=== PATIENT | female | born 1965 | race Caucasian/White ===

== ENCOUNTER 2021-06-29 07:17 | Emergency (ER) | payer MEDICARE, OTHER ==
[~2021-06-29] VITALS: Ht 160 cm; Wt 107.5 kg
--- OUTSIDE RECORDS SUMMARY | 2021-06-29 07:20 | XMS ---
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 Guidelines Source: [facility] [place] Guidelines Date: 02/27/2020 Care Coordination: Member is currently enrolled in Mental Health Services through [facility]. If services are needed through [facility] please call: Jaida [phone] Radha/Jey Alas\\[facility]; [phone] Crisis [phone] E.D. VISIT COUNT (12 MO.) 1 [facility] TOTAL 1 NOTE: Visits indicate total known visits. ED/UCC VISIT TRACKING (12 MO.) 06/29/2021 07:17 [facility] [place] TYPE: Emergency COMPLAINT: - ANIMAL BITE INPATIENT VISIT TRACKING (12 MO.) No inpatient visits to display in this time frame [email or web address]
[2021-06-29] MEDS ORDERED: ADVAIR 500-501 EACH INH (07:22)
[2021-06-29] MEDS ORDERED: LAMOTRIGINE25 MG PO (07:22)
[2021-06-29] MEDS ORDERED: HYDROXYZINE PAM50 MG PO (07:23)
[2021-06-29] MEDS ORDERED: VENTOLIN HFA18 GM INH (07:23)
[2021-06-29] MEDS ORDERED: AUGMENTIN 875-1 EACH PO (07:43)
== END 2021-06-29 08:08 | disposition home or self-care (01) ==
LOC: ED 07:17
DX: S61.451A Open bite of right hand, initial encounter (principal); L03.113 Cellulitis of right upper limb; W55.01XA Bitten by cat, initial encounter; J44.9 Chronic obstructive pulmonary disease, unspecified; F17.200 Nicotine dependence, unspecified, uncomplicated; Z23 Encounter for immunization; Z88.5 Allergy status to narcotic agent; Z88.2 Allergy status to sulfonamides; Z79.899 Other long term (current) drug therapy
CPT/HCPCS: 90471; 90715; 99283-25

== ENCOUNTER 2022-02-06 23:06 | Emergency (ER) | payer MEDICARE, OTHER ==
[~2022-02-06] VITALS: Ht 160 cm; Wt 107.5 kg
[~2022-02-06 23:06] MED LIST: ADVAIR 500-501 EACH INH; AUGMENTIN 875-1 EACH PO; HYDROXYZINE PAM50 MG PO; LAMOTRIGINE25 MG PO; VENTOLIN HFA18 GM INH
--- OUTSIDE RECORDS SUMMARY | 2022-02-06 23:09 | XMS ---
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 If patient is seen in the ED during business hours. Please contact CHWs at [facility]. Care Recommendation: If this patient has had 5 or more Emergency Department visits in the last 12 months.\T\nbsp; Patient will require education on the scope and purpose of the ED as an acute care provider not a Primary Care Provider and should not be utilized for chronic conditions.\T\nbsp; These are guidelines and the provider should exercise clinical judgment when providing care. E.D. VISIT COUNT (12 MO.) 2 [facility] TOTAL 2 NOTE: Visits indicate total known visits. ED/UCC VISIT TRACKING (12 MO.) 02/06/2022 23:07 [facility] [place] TYPE: Emergency COMPLAINT: - HEAD PAIN 06/29/2021 07:17 [facility] [place] TYPE: Emergency COMPLAINT: - ANIMAL BITE DIAGNOSES: - Chronic obstructive pulmonary disease, unspecified - Allergy status to narcotic agent - Bitten by cat, initial encounter - Nicotine dependence, unspecified, uncomplicated - Open bite of right hand, initial encounter - Encounter for immunization - Allergy status to sulfonamides - Cellulitis of right upper limb - Other [facility] (current) drug therapy INPATIENT VISIT TRACKING (12 MO.) No inpatient visits to display in this time frame [email or web address]
[2022-02-06] MEDS ORDERED: LISINOPRIL10 MG PO (23:29)
[2022-02-06] MEDS ORDERED: ATORVASTATIN CA20 MG PO (23:29)
[2022-02-07] MEDS ORDERED: ZYPREXA5 MG PO (00:17)
[2022-02-08] MEDS ORDERED: CEPHALEXIN500 M1 PO (19:21)
== END 2022-02-07 00:30 | disposition home or self-care (01) ==
LOC: ED 23:06
DX: F22 Delusional disorders (principal); J44.9 Chronic obstructive pulmonary disease, unspecified; F41.9 Anxiety disorder, unspecified; F17.200 Nicotine dependence, unspecified, uncomplicated; Z88.2 Allergy status to sulfonamides; Z88.5 Allergy status to narcotic agent; Z79.899 Other long term (current) drug therapy; Z79.51 Long term (current) use of inhaled steroids
CPT/HCPCS: 96372; 99284; A9270; J1885

== ENCOUNTER 2022-02-07 20:12 | Emergency (ER) | payer MEDICARE, OTHER ==
[~2022-02-07] VITALS: Ht 160 cm; Wt 107.5 kg
[~2022-02-07 20:12] MED LIST changes: +ATORVASTATIN CA20 MG PO; +LISINOPRIL10 MG PO; +ZYPREXA5 MG PO
--- OUTSIDE RECORDS SUMMARY | 2022-02-07 20:14 | XMS ---
PreManage Notification: TUNDE ADDISON Security Arborist Representative Events No recent Security Events currently on file CRITERIA MET - [facility] - 2 Visits in 30 Days - PDMP CARE PROVIDERS KAVITA MERCHANT [facility] 06/30/2021-Current PHONE: [phone] Care Guidelines exist for the following facilities: [facility] ( 02/27/2020 ) Care History Medical/Surgical 06/30/2021 [facility] - Patient is currently established with [facility]. If patient is seen in the ED during business hours. Please contact CHWs at [facility]. Care Recommendation: If this patient has [...] providing care. E.D. VISIT COUNT (12 MO.) 3 [facility] TOTAL 3 NOTE: Visits indicate total known visits. ED/UCC VISIT TRACKING (12 MO.) 02/07/2022 20:12 [facility] [place] TYPE: Emergency COMPLAINT: - CONFUSED 02/06/2022 23:07 [facility] [place] TYPE: Emergency COMPLAINT: - HEAD PAIN 06/29/2021 07:[address] [facility] [place] TYPE: Emergency COMPLAINT: - ANIMAL BITE DIAGNOSES: - Chronic obstructive pulmonary disease, unspecified - Allergy status to narcotic agent - Bitten by cat, initial encounter - Nicotine dependence, unspecified, uncomplicated - Open bite of right hand, initial encounter - Encounter for immunization - Allergy status to sulfonamides - Cellulitis of right upper limb - Other [facility] drug therapy INPATIENT VISIT TRACKING (12 MO.) No inpatient visits to display in this time frame [email or web address]
[2022-02-08] MEDS ORDERED: CEPHALEXIN500 M1 PO (19:21)
== END 2022-02-08 15:17 | disposition home or self-care (01) ==
LOC: ED 20:12
DX: F22 Delusional disorders (principal); N39.0 Urinary tract infection, site not specified; J44.9 Chronic obstructive pulmonary disease, unspecified; F41.9 Anxiety disorder, unspecified; F17.200 Nicotine dependence, unspecified, uncomplicated; Z88.2 Allergy status to sulfonamides; Z88.5 Allergy status to narcotic agent; Z79.899 Other long term (current) drug therapy; Z79.51 Long term (current) use of inhaled steroids
CPT/HCPCS: 36415; 70450; 80053; 81001; 85025; 96372; 99285-25; A9270; C9803; G0480; J1200; J1630; U0003